=== PATIENT | female | born 1990 | race African-American/Black ===

== ENCOUNTER 2020-12-18 08:16 | Emergency (ER) | payer BC ==
[2020-12-18] MEDS ORDERED: Sodium Chloride 0.9% 2.5 ML Syringe FLUSH PRN (08:31)
[2020-12-18] MEDS ORDERED: Sodium Chloride 0.9% 10 ML Syringe FLUSH PRN (08:31)
[2020-12-18] MEDS ORDERED: Lactated Ringers 1,000 ML IV ONE (08:33)
[2020-12-18] MEDS ORDERED: Haloperidol Lactate 5 MG/ML SDV IM ONE (08:34)
--- NOTE | 2020-12-18 08:41 | EDM.PDOC ---
ED HPI GENERAL MEDICAL PROBLEM - General Chief Complaint: Gastrointestinal Problem Stated Complaint: SHIVERS,VOMITTING Time Seen by Provider: 12/18/20 08:30 - History of Present Illness INITIAL COMMENTS - FREE TEXT/NARRATIVE: 30-year-old female presents with abdominal pain nausea vomiting. Patient does smoke pot daily but did not smoke in the last 3 days. She has had no issues with vomiting in the setting of THC in the past. Vomiting started last night and then today worse with vomiting and abdominal pain and chills. No diarrhea. No pain when she pees. Moderate to severe symptoms without exacerbating relieving factors - Related Data Allergies Allergy/AdvReac Type Severity Reaction Status Date / Time codeine Allergy Hives Verified 12/18/20 08:37 Home Meds: Home Meds Ondansetron [Zofran ODT] 4 mg PO Q6H PRN #18 tab.dis 12/18/20 [Rx] Potassium Chloride 20 meq PO ONETIME #2 tablet.er 12/18/20 [Rx] Sertraline [Zoloft] 12/18/20 [History] lamoTRIgine [Lamotrigine] 12/18/20 [History] ED ROS GENERAL - Review of Systems Review Of Systems: Comprehensive ROS is negative, except as noted in HPI. Respiratory: Denies: Shortness of Breath, Cough ED EXAM, GENERAL - Physical Exam Exam: See Below Free Text/Narrative:: CONSTITUTIONAL: well appearing in no acute distress SKIN: Warm, dry, and intact without rash HENT: Normocephalic, atraumatic, PULMONARY: clear to ausculation bilaterally. No rales, rhonchi, wheezing CARDIOVASCULAR: regular rate, No murmur, rubs, or gallops GASTROINTESTINAL: Diffuse tenderness. No rigidity NEUROLOGIC: normal speech, II-XII intact. light touch/5/5 power equal and symmetric in upper and lower extremities without deficit MUSCULOSKELETAL: no gross deformities, atraumatic PSYCHIATRIC: normal mood and affect Course - Vital Signs Text/Narrative:: Differential diagnosis: Hyperemesis gravidarum, bowel obstruction, cyclic vomiting, intracranial hemorrhage, dehydration, electrolyte derangements, other Patient presents with vomiting. The patient has stopped smoking marijuana recently and this could be the beginnings of cyclic vomiting. The patient has not had this before. CT scan reveals questionable pelvic calcification ultrasound reading suggest this is most likely from a calcified fibroid. Patient states she knows she does have a history of fibroids. Patient was advised that this could be cyclic vomiting and to consider breaking the cycle at this point and stop smoking. Otherwise the patient's condition is improved and she is well-appearing. She will be sent home on Zofran and then 1 additional dose of potassium since it is unclear if she might of vomited up part of her dose. She will be given copies of her imaging results and is instructed to follow-up with her [facility] doctor. Patient plans on returning to her home in [place] tomorrow. Last Recorded V/S: Last Vital Signs Temp 35.3 C L 12/18/20 08:31 Pulse 66 12/18/20 12:31 Resp 16 12/18/20 12:31 BP 169/88 H 12/18/20 12:31 Pulse Ox 98 12/18/20 12:31 - Orders/Labs/Meds Orders: Active Orders 24 hr Category Date Time Status Sodium Chloride 0.9% [Saline Flush] Med 12/18/20 08:31 Active 10 ml FLUSH ASDIRECTED PRN Sodium Chloride 0.9% [Saline Flush] Med 12/18/20 08:31 Active 2.5 ml FLUSH ASDIRECTED PRN Saline Lock Insert [OM.PC] Stat Oth 12/18/20 08:31 Ordered Medication Orders Sodium Chloride (Sodium Chloride 0.9% 10 Ml Syringe) 10 ml FLUSH ASDIRECTED PRN PRN Reason: Keep Vein Open Last Admin: 12/18/20 08:49 Dose: 10 ml Documented by: BRUNO Sodium Chloride (Sodium Chloride 0.9% 2.5 Ml Syringe) 2.5 ml FLUSH ASDIRECTED PRN PRN Reason: Keep Vein Open Last Admin: 12/18/20 08:49 Dose: 2.5 ml Documented by: BRUNO Labs: Laboratory Tests 12/18/20 12/18/20 12/18/20 Range/Units 08:40 08:40 08:40 WBC 5.46 (4.0-11.0) K/uL RBC 4.03 L (4.30-5.90) M/uL Hgb 13.3 (12.0-16.0) g/dL Hct 38.7 (36.0-46.0) % MCV 96.0 (80.0-98.0) fL MCH 33.0 H (27.0-32.0) pg MCHC 34.4 (31.0-37.0) g/dL RDW Std Deviation 40.5 (28.0-62.0) fl RDW Coeff of Leonid 11 (11.0-15.0) % Plt Count 234 (150-400) K/uL MPV 10.50 (7.40-12.00) fL Neut % (Auto) 62.8 (48.0-80.0) % Lymph % (Auto) 26.2 (16.0-40.0) % [place] % (Auto) 9.7 (0.0-15.0) % Eos % (Auto) 0.9 (0.0-7.0) % Baso % (Auto) 0.4 (0.0-1.5) % Neut # (Auto) 3.4 (1.4-5.7) K/uL Lymph # (Auto) 1.4 (0.6-2.4) K/uL [place] # (Auto) 0.5 (0.0-0.8) K/uL Eos # (Auto) 0.1 (0.0-0.7) K/uL Baso # (Auto) 0.0 (0.0-0.1) K/uL Nucleated RBC % 0.0 /100WBC Nucleated RBCs # 0 K/uL Sodium 138 (136-145) mmol/L Potassium 3.1 L (3.5-5.1) mmol/L Chloride 101 (98-107) mmol/L Carbon Dioxide 22.1 (21.0-32.0) mmol/L BUN 6 L (7.0-18.0) mg/dL Creatinine 1.0 (0.6-1.0) mg/dL Est Cr Clr Drug Dosing 76.57 mL/min Estimated GFR (MDRD) > 60.0 ml/min Glucose 143 H (74-106) mg/dL Calcium 9.2 (8.5-10.1) mg/dL Total Bilirubin 0.6 (0.2-1.0) mg/dL AST 26 (15-37) IU/L ALT 32 (14-63) IU/L Alkaline Phosphatase 87 (46-116) U/L Total Protein 8.2 (6.4-8.2) g/dL Albumin 4.3 (3.4-5.0) g/dL Globulin 3.9 (2.6-4.0) g/dL Albumin/Globulin Ratio 1.1 (0.9-1.6) Lipase 38 L (73-393) U/L HCG, Qual NEGATIVE (NEG) Urine Color Urine Appearance Urine pH (5.0-8.0) Ur Specific [place] (1.001-1.035) Urine Protein (NEGATIVE) mg/dL Urine Glucose (UA) (NEGATIVE) mg/dL Urine Ketones (NEGATIVE) mg/dL Urine Occult Blood (NEGATIVE) Urine Nitrite (NEGATIVE) Urine Bilirubin (NEGATIVE) Urine Urobilinogen (<2.0) EU/dL Ur Leukocyte Esterase (NEGATIVE) Urine RBC (0-2/HPF) Urine WBC (0-5/HPF) Ur Epithelial Cells (NONE-FEW) Urine Bacteria (NEGATIVE) SARS-CoV-2 RNA (MERLY) (NEGATIVE) 12/18/20 12/18/20 Range/Units 09:32 09:53 WBC (4.0-11.0) K/uL RBC (4.30-5.90) M/uL Hgb (12.0-16.0) g/dL Hct (36.0-46.0) % MCV (80.0-98.0) fL MCH (27.0-32.0) pg MCHC (31.0-37.0) g/dL RDW Std Deviation (28.0-62.0) fl RDW Coeff of Leonid (11.0-15.0) % Plt Count (150-400) K/uL MPV (7.40-12.00) fL Neut % (Auto) (48.0-80.0) % Lymph % (Auto) (16.0-40.0) % [place] % (Auto) (0.0-15.0) % Eos % (Auto) (0.0-7.0) % Baso % (Auto) (0.0-1.5) % Neut # (Auto) (1.4-5.7) K/uL Lymph # (Auto) (0.6-2.4) K/uL [place] # (Auto) (0.0-0.8) K/uL Eos # (Auto) (0.0-0.7) K/uL Baso # (Auto) (0.0-0.1) K/uL Nucleated RBC % /100WBC Nucleated RBCs # K/uL Sodium (136-145) mmol/L Potassium (3.5-5.1) mmol/L Chloride (98-107) mmol/L Carbon Dioxide (21.0-32.0) mmol/L BUN (7.0-18.0) mg/dL Creatinine (0.6-1.0) mg/dL Est Cr Clr Drug Dosing mL/min Estimated GFR (MDRD) ml/min Glucose (74-106) mg/dL Calcium (8.5-10.1) mg/dL Total Bilirubin (0.2-1.0) mg/dL AST (15-37) IU/L ALT (14-63) IU/L Alkaline Phosphatase (46-116) U/L Total Protein (6.4-8.2) g/dL Albumin (3.4-5.0) g/dL Globulin (2.6-4.0) g/dL Albumin/Globulin Ratio (0.9-1.6) Lipase (73-393) U/L HCG, Qual (NEG) Urine Color YELLOW Urine Appearance SLT CLOUDY Urine pH 8.0 (5.0-8.0) Ur Specific [place] 1.025 (1.001-1.035) Urine Protein NEGATIVE (NEGATIVE) mg/dL Urine Glucose (UA) NEGATIVE (NEGATIVE) mg/dL Urine Ketones 15 H (NEGATIVE) mg/dL Urine Occult Blood TRACE-INTACT H (NEGATIVE) Urine Nitrite POSITIVE H (NEGATIVE) Urine Bilirubin NEGATIVE (NEGATIVE) Urine Urobilinogen 0.2 (<2.0) EU/dL Ur Leukocyte Esterase NEGATIVE (NEGATIVE) Urine RBC 0-1 (0-2/HPF) Urine WBC 0-2 (0-5/HPF) Ur Epithelial Cells FEW (NONE-FEW) Urine Bacteria 2+ H (NEGATIVE) SARS-CoV-2 RNA (MERLY) NEGATIVE (NEGATIVE) Meds: Medications Generic Name Dose Route Start Last Admin Trade Name Freq PRN Reason Stop Dose Admin Sodium Chloride 10 ml 12/18/20 08:31 12/18/20 08:49 Sodium Chloride 0.9% 10 Ml Syringe FLUSH 10 ml ASDIRECTED PRN Administration Keep Vein Open Sodium Chloride 2.5 ml 12/18/20 08:31 12/18/20 08:49 Sodium Chloride 0.9% 2.5 Ml Syringe FLUSH 2.5 ml ASDIRECTED PRN Administration Keep Vein Open Discontinued Medications Generic Name Dose Route Start Last Admin Trade Name Yovani PRN Reason Stop Dose Admin Diphenhydramine HCl 50 mg 12/18/20 12:25 12/18/20 12:36 Diphenhydramine 50 Mg/Ml Sdv IVPUSH 12/18/20 12:26 50 mg ONETIME ONE Administration Haloperidol Lactate 5 mg 12/18/20 08:34 12/18/20 08:40 Haloperidol Lactate 5 Mg/Ml Sdv IM 12/18/20 08:35 5 mg ONETIME ONE Administration Lactated Ringer's 1,000 mls @ 999 mls/hr 12/18/20 08:33 12/18/20 08:43 Ringers, Lactated IV 12/18/20 09:33 999 mls/hr .BOLUS ONE Administration Iopamidol 100 ml 12/18/20 10:26 12/18/20 10:26 Iopamidol 755 Mg/Ml 500 Ml Multipack Bottle IVPUSH 12/18/20 10:27 100 ml ONETIME ONE Administration Metoclopramide HCl 10 mg 12/18/20 12:26 12/18/20 12:36 Metoclopramide 10 Mg/2 Ml Sdv IVPUSH 12/18/20 12:27 10 mg ONETIME ONE Administration Ondansetron HCl 4 mg 12/18/20 09:38 12/18/20 09:41 Ondansetron 4 Mg/2 Ml Sdv IVPUSH 12/18/20 09:39 4 mg ONETIME ONE Administration Potassium Chloride 40 meq 12/18/20 09:55 12/18/20 10:19 Potassium Chloride 20 Meq Tab.Er PO 12/18/20 09:56 40 meq NOW STA Administration Departure - Departure Time of Disposition: 14:43 Disposition: Home, Self-Care 01 Condition: Good Clinical Impression: Vomiting - Discharge Information Instructions: Nausea and Vomiting, Adult Referrals: PCP,None [Primary Care Provider] - Forms: ED Department Discharge Additional Instructions: Return for fevers, increasing pain, inability to tolerate fluids, change or worsening condition or lack of improvement. Please stop smoking marijuana as this may be a significant contributing factor to what is going on. Please follow-up with your [facility] doctor this coming week for reevaluation and also provide them with copies of the test that we have done here today so that they can follow-up. Sepsis Event Note (ED) - Evaluation Sepsis Screening Result: No Definite Risk - Focused Exam Vital Signs: Vital Signs Temp Pulse Resp BP Pulse Ox 12/18/20 12:31 66 16 169/88 H 98 12/18/20 11:36 67 170/80 H 100 12/18/20 11:04 66 175/95 H 99 12/18/20 10:21 74 20 144/73 H 100 12/18/20 09:34 62 148/69 H 97 12/18/20 09:04 64 136/68 99 12/18/20 08:53 62 136/75 100 12/18/20 08:33 58 L 17 129/76 100 12/18/20 08:31 35.3 C L - My Orders Last 24 Hours: My Active Orders 12/18/20 08:31 Sodium Chloride 0.9% [Saline Flush] 10 ml FLUSH ASDIRECTED PRN Sodium Chloride 0.9% [Saline Flush] 2.5 ml FLUSH ASDIRECTED PRN Saline Lock Insert [OM.PC] Stat - Assessment/Plan Last 24 Hours: My Active Orders 12/18/20 08:31 Sodium Chloride 0.9% [Saline Flush] 10 ml FLUSH ASDIRECTED PRN Sodium Chloride 0.9% [Saline Flush] 2.5 ml FLUSH ASDIRECTED PRN Saline Lock Insert [OM.PC] Stat
[2020-12-18 09:08] LABS: BLOOD UREA NITROGEN,BUN 6 mg/dL (7.0-18.0); CARBON DIOXIDE,CO2 22.1 mmol/L (21.0-32.0); CHLORIDE,CL 101 mmol/L (98-107); GLUCOSE RANDOM 143 mg/dL (74-106); LIPASE 38 U/L (73-393); POTASSIUM,K 3.1 mmol/L (3.5-5.1); SODIUM,NA 138 mmol/L (136-145)
[2020-12-18] MEDS ORDERED: Ondansetron 4 MG/2 ML SDV IVPUSH ONE (09:38)
[2020-12-18] MEDS ORDERED: Potassium Chloride 20 MEQ Tab.ER PO STA (09:55)
[2020-12-18] MEDS ORDERED: Iopamidol 755 MG/ML 500 ML Multipack Bottle IVPUSH ONE (10:26)
--- NOTE | 2020-12-18 10:55 | CT ---
Indication: Mid abdominal pain. Technique: Multiple contiguous axial images were obtained from the lung bases is symphysis pubis after the intravenous administration of 100 cc Isovue 370. Please note that all CT scans at this facility use dose modulation, iterative reconstruction, and/or weight-based dosing when appropriate to reduce radiation dose to as low as reasonably achievable. Comparison: None Findings: The lung bases are clear. The heart is normal in size. No pericardial effusion is identified. The liver, spleen, pancreas, gallbladder, adrenals, and kidneys are normal. No intrahepatic biliary ductal dilatation is identified. No hydronephrosis is seen. In the pelvis, the uterus is grossly normal. I left ovarian cyst is identified. This measures approximately 4.5 x 4.5 centimeters in size. A circumscribed masses identified in the right lower quadrant. It is difficult to min if this is within the uterus or the ovary. This measures maximally 4.4 x 2.6 centimeters in size and the thin on image number 129, series 201. The small and large bowel are normal in caliber. No free air free fluid is identified within the abdomen or pelvis. The aorta is normal in caliber. No lytic or blastic lesions of the spine are identified. Impression: Left adnexal cyst. Calcified mass identified in the right lower quadrant, either within the right ovary or more likely the uterus. An ultrasound of the pelvis may be of benefit in further evaluating these findings. Please note that all CT scans at this facility use dose modulation, iterative reconstruction, and/or weight-based dosing when appropriate to reduce radiation dose to as low as reasonably achievable. Dictated by Trina Sherman MD @ 12/18/2020 10:54:[address] Trina Sherman @ Dec 18 2020 10:54AM
[2020-12-18] MEDS ORDERED: diphenhydrAMINE 50 MG/ML SDV IVPUSH ONE (12:25)
[2020-12-18] MEDS ORDERED: Metoclopramide 10 MG/2 ML SDV IVPUSH ONE (12:26)
--- NOTE | 2020-12-18 14:11 | US ---
CLINICAL HISTORY: Calcifications seen on CT evaluate for torsion TECHNIQUE: Real time, garrido scale images were acquired of the pelvis using a transabdominal and transvaginal approach. Color Doppler analysis was performed of the ovaries. FINDINGS: Uterus measures 7.7 x 3.8 x 2.6 centimeters. Endometrial stripe measures 2 millimeters. Small fibroid in the uterus measuring 1.1 by 1 by 1.5 centimeters. Heterogeneous 4.7 x 4.7 centimeter lesion arising from the fundus likely reflects the partially calcified exophytic fibroid. The right ovary measures 3 x 2.8 x 3.4 centimeters normal blood flow to the right ovary. Large cyst in the left ovary measuring 3.7 x 4.7 cm there is normal blood flow to left ovary. There is no free fluid or adnexal mass. IMPRESSION: 1. Left ovarian cyst measuring 3.7 x 4.7 centimeters with normal blood flow seen in both ovaries. 2. Heterogeneous lesion exophytic off the right fundus probably reflects a partially calcified fibroid. Small intramural fibroid measuring 1.5 cm. Dictated by Quyen Colbert MD @ 12/18/2020 2:10:[address] Quyen Colbert @ Dec 18 2020 2:10PM
== END 2020-12-18 15:05 | disposition home or self-care (01) ==
LOC: MW.ED 08:16
DX: R11.2 Nausea with vomiting, unspecified (principal); F17.210 Nicotine dependence, cigarettes, uncomplicated; Z88.5 Allergy status to narcotic agent; Z79.899 Other long term (current) drug therapy; Z20.822 Contact with and (suspected) exposure to COVID-19
CPT/HCPCS: 36415; 74177; 76856; 80053; 81001; 83690; 84703; 85025; 87635; 96372; 96374; 96375; 99284; A9270; J1200; J1630; J2405; J2765; J7120; Q9967; U0002